=== PATIENT | male | born 1975 | race Caucasian/White ===

== ENCOUNTER 2023-04-25 06:24 | Day surgery (SDC) | payer OTHER ==
[~2023-04-25] VITALS: Ht 170.2 cm; Wt 88.1 kg
[2023-04-25] MEDS ORDERED: NEURONTIN300 MG/CAP PO (06:57)
[2023-04-25] MEDS ORDERED: DULCOLAX TAB5 MG PO (06:58)
[2023-04-25] MEDS ORDERED: MASON NATURAL2000 IU PO (06:58)
[2023-04-25] MEDS ORDERED: TOPROL XL 25MG25 MG PO (06:59)
[2023-04-25] MEDS ORDERED: ZANAFLEX2 MG PO (06:59)
[2023-04-25] MEDS ORDERED: HCTZ 25MG TAB25 MG PO (07:00)
[2023-04-25] MEDS ORDERED: ZYRTEC 10MG10 MG PO (07:01)
[2023-04-25] MEDS ORDERED: ZOCOR 10MG10 MG PO (07:03)
[2023-04-25 07:39] VITALS: BP 147/102; PULSE 91; TEMP 98
[2023-04-25 08:52] VITALS: BP 144/90; PULSE 85; TEMP 97.3
[2023-04-25 09:00] VITALS: BP 130/95; PULSE 89
[2023-04-25 09:15] VITALS: BP 132/104; PULSE 84
--- NOTE | 2023-04-25 09:35 | NUR ---
0852- PATIENT RETURNS TO [facility] [place] VIA CART. PT AWAKE AND ALERT. RESPIRATIONS UNLABORED. AMBULATED TO RECLINER CHAIR WITH 2:1 SBA. PT DENIES NAUSEA OR ABDOMINAL PAIN. HOOKED UP TO MONITOR AND VS OBTAINED. CALL LIGHT AT SIDE AND PRESENT. 0900- PATIENT TOLERATING APPLE JUICE AND MUFFIN WITHOUT NAUSEA OR ABD PAIN. 0902- DR. VELASQUEZ IN ROOM SPEAKING WITH PATIENT. 0914- D/C INSTRUCTIONS REVIEWED WITH PATIENT. PT VERBALIZED UNDERSTANDING AND A COPY OF INSTRUCTIONS PROVIDED IN D/C FOLDER. 0925- PATIENT DRESSES SELF. 0935- PATIENT DISCHARGED FROM UNIT VIA W/C TO A PERSONAL VEHICLE. PT LEFT HOSPITAL IN STABLE CONDITION.
== END 2023-04-25 09:35 | disposition home or self-care (01) ==
LOC: SDCO 06:24 → EDSEX 06:24 → SDCO 09:35
DX: Z12.11 Encounter for screening for malignant neoplasm of colon (principal)
CPT/HCPCS: J2704; J7120

== ENCOUNTER → 2023-05-16 | Outpatient (CLI) | payer OTHER ==
[~2023-05-16] MED LIST: DULCOLAX TAB5 MG PO; HCTZ 25MG TAB25 MG PO; MASON NATURAL2000 IU PO; NEURONTIN300 MG/CAP PO; TOPROL XL 25MG25 MG PO; ZANAFLEX2 MG PO; ZOCOR 10MG10 MG PO; ZYRTEC 10MG10 MG PO
== END ==
LOC: COL.RAD 09:00
DX: Z01.89 Encounter for other specified special examinations (principal); M51.37 Other intervertebral disc degeneration, lumbosacral region